=== PATIENT | female | born 1945 | race Caucasian/White ===

== ENCOUNTER → 2016-11-24 | Outpatient (CLI) | payer MEDICARE ==
[2016-11-23 15:14] VITALS: BMI 21.9
--- NOTE | 2016-11-24 12:48 | P.HPIM ---
History of Present Illness H&P Date: 11/24/16 Chief Complaint: perineal pain This is a 71-year-old patient referred by Dr. Crane for pudendal nerve blocks for patient's chronic pain in perineal area and groin region due to "restless genital syndrome". Patient has been taking medications from primary care physician including Xanax medications with some relief. Patient denies adverse drug effects from medications. Patient also denies new-onset weakness, bowel/ bladder incontinence, or any other signs or symptoms of cauda equina syndrome. There are no signs of acute intoxication, and no indications of medication diversion or overuse. Patient notes that pain worsens significantly with sitting and reaching, and improves with yoga, lying down, and medication. Patient has used several types of medications for pain, including NSAIDS, OPIOIDS (have never helped her) and BENZOS (Xanax/Ativan). Patient HAS NOT had surgery. Patient HAS had injections (pelvic TPI) previously. Patient HAS had physical therapy recently without significant benefit. In addition to above, 13-point review of systems is also negative for chest pain , shortness of breath, changes in vision, changes in hearing, new onset weakness , abdominal pain, diarrhea, extreme fatigue, malaise, fever, skin changes, homicidal or suicidal ideation, or bowel or bladder incontinence. 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, no hx of HTN History of Any Multi-Drug Resistant Organisms: None Reported Past Surgical History: Hysterectomy Past Anesthesia/Blood Transfusion Reactions: Postoperative Nausea & Vomiting ( PONV) Smoking Status: Never smoker Medications and Allergies Home Medications Medication Instructions Recorded Confirmed Type ALPRAZolam [Xanax] 0.25 mg PO DAILY PRN 11/23/16 11/23/16 History Besifloxacin HCl [Besivance] 1 drop RIGHT EYE BID 11/23/16 11/23/16 History Enalapril [Vasotec] 5 mg PO BID 11/23/16 11/23/16 History Insulin NPH Human Isophane 0 unit SQ ACHS 11/23/16 11/23/16 History [NovoLIN N] Insulin Regular, Human [NovoLIN R] 0 unit SQ ACHS 11/23/16 11/23/16 History Steriod Eye Drop 1 drop RIGHT EYE BID 11/23/16 History Thyroid,Pork [[place] Thyroid] 240 mg PO DAILY 11/23/16 11/23/16 History Allergies Allergy/AdvReac Type Severity Reaction Status Date / Time cephalexin [From Keflex] Allergy fainted Verified 11/23/16 15:01 procaine [From Novocain] Allergy Rapid Verified 11/23/16 15:01 Heart Rate Physical Exam Vitals: Intake and Output 11/23/16 11/24/16 11/24/16 22:59 06:59 14:59 Other: Weight 56.245 kg Results Comments: MRI of the sacrum and coccyx is unremarkable. MRI lumbar spine demonstrates facet arthropathy at multiple levels along with several broad-based disc bulges at the L3-L4, L4-L5 levels. There is some spinal stenosis at the L3-L4 and L4- L5 levels with facet arthropathy at several levels in lumbar spine. Assessment and Plan (1) Pudendal neuralgia Status: Chronic (2) Chronic pain syndrome Status: Chronic Plan: 1. Explanation: Opioid and psychological risk scores were reviewed. Diagnoses , prognoses, and multiple treatment options including but not limited to physical therapy, interventional therapies, adjuvant medical therapies, narcotic medication therapies, and surgery were discussed with the patient and all questions were answered to the patient's satisfaction. 2. Opioid agreement: no opioids prescribed today 3. Counseling: The patient was counseled extensively on BODY MASS INDEX, EXERCISE. Specifically, the patient was instructed regarding the importance of weight control, and exercise in the context of both chronic pain and overall health. 4. Procedures: bilateral pudendal nerve blocks under fluoro 5. Consultations: none 6. Investigations: none 7. Medications: none prescribed 8. Disposition: f/u for procedure as scheduled. I did warn patient that, if her blood pressure is extremely high on the day of the procedure, that we may not be able to do it for her. PQRS measures: 1-Patient's medications are documented in the chart. 2-Tobacco use is negative 3-Patient has not had a pneumococcal vaccine. 4-Advanced care planning discussed, patient unable to give. 5-Opioid contract NOT signed with the patient. 6-Pain positive, follow-up visit or procedure scheduled 7-Patient's blood pressure measured and documented, and patient will follow up with the primary care due to hypertension. 8-Patient's weight was measured, and body mass index within the normal limits, and counseling was done. Patient instructed to follow up with PCP. 9-Patient WAS NOT identified as an unhealthy alcohol user. Time with Patient: Greater than 30
== END | disposition home or self-care (01) ==
LOC: PNWHC3 11:42
PROVIDERS: ATTEND Anesthesiology
DX: G58.8 Other specified mononeuropathies (principal); G89.4 Chronic pain syndrome; E11.9 Type 2 diabetes mellitus without complications; Z79.899 Other long term (current) drug therapy
CPT/HCPCS: 99211

== ENCOUNTER 2017-01-14 07:33 | Day surgery (SDC) | payer MEDICARE, OTHER ==
[2017-01-12 13:06] VITALS: BMI 22.4
[~2017-01-14 07:33] MED LIST: LACTATED RINGERS 1,000 ML IV SCH
[2017-01-14] MEDS ORDERED: LACTATED RINGERS 1,000 ML IV ONE (07:45)
[2017-01-14 07:53] VITALS: RESP 18; TEMP 98.1
[2017-01-14] MEDS ORDERED: LIDOCAINE 1% 20 ML VIAL (10MG/ML) FOR IV START INTRADERMA ONE (07:53)
[2017-01-14 08:03] LABS: Glucose,Whole Blood 189 mg/dL (75-99)
[2017-01-14] MEDS ORDERED: IV FLUID CONTINUATION 1,000 ML IV ONE (09:28)
--- NOTE | 2017-01-14 09:35 | FL ---
EXAMINATION TYPE: FL guided pain mgmt statistic DATE OF EXAM: 01/14/2017 COMPARISON: NONE HISTORY: Pudendal nerve block TECHNIQUE: Fluoroscopy. FINDINGS/IMPRESSION: Fluoroscopic guidance was provided during procedure performed by Dr. Galvin. A total of 8 seconds of fluoroscopic time was utilized during the procedure and 5 spot images was ac quired.
[2017-01-14 09:52] VITALS: BP 150/70; PULSE 73
--- NOTE | 2017-01-14 10:59 | P.PCN ---
Date of Procedure: 01/14/17 Procedure(s) Performed: Preoperative diagnoses= 1-Pudendal nerve neuralgia . Postoperative diagnoses= same as preoperative diagnosis. Procedure= bilateral Pudendal nerve steroid injection under fluoroscopic guidance. Anesthesia= conscious sedation with Versed 1 mg and fentanyl 50 micrograms and local infiltration with lidocaine 1% 4 ml Estimated blood loss=minimal. Procedure indication= the patient had a history of severe chronic low back pain , diagnosed with sacroiliitis and lumbar sacral facet arthropathy unresponsive to conservative treatment. Procedure description= the patient was seen and identified in the preoperative holding area, risks and benefits and alternative of the procedure and possible complications discussed with the patient, and he agreed with the preceding, patient signed the consent, an IV was started, and vital signs were monitored and were stable throughout the procedure, patient was placed in the prone position or table and the lumbosacral and the buttuck area was prepped and draped with a sterile fashion, vital signs were closely monitored during the procedure, the fluoroscopy camera was placed in the AP view the the pevis bone identeified , local infiltration of the skin and subcutaneous tissue with lidocaine 1% 2 mL then a 22-gauge Quincke-type spinal needle advanced slowly under fluoroscopy and placed in the media aspect of the inferior part and medial to the ischial tuberosity , placement confirmed with AP and lateral view , and after appropriate needle placement confirmed and after negative aspiration for heme and CSF and there was no paresthesia during the injection, 5 ml of Marcaine 0.5% and 20 mg of Kenalog injected after negative aspiration, the needle removed, and the entire same procedure was repeated for the left Pudendal nerve Patient tolerated the procedure well without any complication, The patient returned to supine position after the back was cleaned and a Band- Aid applied, the patient transported to recovery room in stable condition and he was monitored for 30 minutes before he was discharged home and then patient was reexamined before going home and patient was discharged in stable condition and patient will follow up with the pain clinic in a few weeks
== END 2017-01-14 10:04 | disposition home or self-care (01) ==
LOC: ORPAIN 07:33
PROVIDERS: ATTEND Specialist
DX: G89.29 Other chronic pain (principal); R10.2 Pelvic and perineal pain; M46.1 Sacroiliitis, not elsewhere classified; M46.96 Unspecified inflammatory spondylopathy, lumbar region; E11.9 Type 2 diabetes mellitus without complications; Z88.1 Allergy status to other antibiotic agents
CPT/HCPCS: 99152; 64430; J2250; J3301; Q9965; J3010

== ENCOUNTER → 2017-02-11 | Outpatient (CLI) | payer MEDICARE, OTHER ==
[2017-02-11 12:04] VITALS: PULSE 113; RESP 18
--- NOTE | 2017-02-11 13:08 | P.PN ---
Subjective Progress Note Date: 02/11/17 This is a follow-up visit for 71 years old female with a history of restless genitalis syndrome, status post pudendal nerve block, patient reported that she had no benefit from the block, and her blood sugar increased to more than 300, and also she had constipation after the block , lasted 2 weeks, patient's reported that she continued to have on and off orgasmic contraction in the pelvic area, she tried different treatments and medications she tried TENS unit pot filler massage therapy none helped, she Senthil medication baclofen Requip topical lidocaine Valium/baclofen supposedly 3, Celexa physical therapy, osteo pathic manipulation, all the above treatments have failed to improve her symptoms Objective - Vital Signs Vital signs: Vital Signs Temp Pulse 113 H 02/11/17 12:00 Resp 18 02/11/17 12:00 BP Pulse Ox 99 02/11/17 12:00 Intake & Output 02/10/17 02/11/17 02/11/17 18:59 06:59 18:59 Weight 56.699 kg Assessment and Plan Plan: Assessment and plan= restless genitalis syndrome recommend ganglion impar block , procedure risk and benefits discussed with the patient and she agreed with the preceding, the procedure will be done with local anesthetic only ,no steroid Time with Patient: Less than 30
== END | disposition home or self-care (01) ==
LOC: PNWHC3 11:41
PROVIDERS: ATTEND Specialist
DX: F52.22 Female sexual arousal disorder (principal)
CPT/HCPCS: 99211

== ENCOUNTER → 2017-05-12 | Outpatient (CLI) | payer MEDICARE, OTHER ==
[2017-05-12 13:30] VITALS: BP 218/97; RESP 16
--- NOTE | 2017-05-12 13:30 | P.PN ---
Progress Note - Text Progress Note Date: 05/12/17 Patient returns for followup for chronic pelvic and perineal pain. Patient recently underwent pudendal nerve block without relief, and more recently ganglion of impar block in February which has given patient relief since procedure even though it was done without any steroid. Patient continues on no regular opioid medications for pain. Patient denies adverse drug effects from medications. Today, pt denies new-onset weakness, bowel/bladder incontinence, or any other signs or symptoms of cauda equina syndrome. There are no signs of acute intoxication, and no indications of medication diversion or overuse. In addition to above, 13-point review of systems is also negative for chest pain , shortness of breath, changes in vision, changes in hearing, new onset weakness , abdominal pain, diarrhea, extreme fatigue, malaise, fever, skin changes, homicidal or suicidal ideation, or bowel or bladder incontinence. Vital Signs: Reviewed in EMR, BP 218/97, HR 115 Gen: WDWN, AAOx3, NAD HEENT: NCAT, EOMI, hearing grossly normal Pulm: resp unlabored Abd: soft, NT, ND Neuro: CN II-XII grossly intact, muscle strength lower extremities PRESERVED Imaging: Reviewed in EMR Assessment: 1. chronic pelvic pain 2. chronic pain syndrome Plan: 1. Explanation: Opioid and psychological risk scores were reviewed. Diagnoses , prognoses, and multiple treatment options including but not limited to physical therapy, interventional therapies, adjuvant medical therapies, narcotic medication therapies, and surgery were discussed with the patient and all questions were answered to the patient's satisfaction. 2. Opioid agreement: Patient has previously signed narcotic agreement, and was orally counseled to not overuse, abuse, divert, or cell medications, and to take them as prescribed by only 1 healthcare provider. The patient was also counseled to store opioid medications in a safe and preferably locked location. Patient was also counseled against driving or operating heavy equipment while using narcotic medications and also to not use alcohol or any illicit or recreational drugs. The patient verbalized understanding that lack of compliance with any of the above and likely result in failure to renew narcotic prescriptions, possible discharge from the clinic, and possible legal ramifications thereafter if indicated. 3. Counseling: The patient was counseled extensively on BODY MASS INDEX, EXERCISE. Specifically, the patient was instructed regarding the importance of weight control, and exercise in the context of both chronic pain and overall health. 4. Procedures: none for now 5. Consultations: None 6. Investigations: None 7. Medications: none 8. Disposition: f/u as needed; patient can call and schedule ganglion of impar block in future as needed PQRS measures: 1-Patient's medications are documented in the chart. 2-Tobacco use is positive/negative, counseling NOT given 3-Patient has not had a pneumococcal vaccine. 4-Advanced care planning discussed, patient unable to give. 5-Opioid contract NOT signed with the patient. 6-Pain positive, follow-up visit or procedure scheduled 7-Patient's blood pressure extremely elevated, and she was advised to seek treatment from PCP or ER given risk of heart attack, stroke, or severe kidney damage. Patient verbalized understanding and refused. 8-Patient's weight was measured, and body mass index WNL. 9-Patient WAS NOT identified as an unhealthy alcohol user.
== END | disposition home or self-care (01) ==
LOC: PNWHC3 12:39
PROVIDERS: ATTEND Anesthesiology
DX: G89.4 Chronic pain syndrome (principal); R10.2 Pelvic and perineal pain
CPT/HCPCS: 99211